=== PATIENT | male | born 1980 | race African-American/Black ===

== ENCOUNTER → 2018-03-21 | Outpatient (CLI) | payer OTHER ==
--- NOTE | 2018-03-21 12:00 | MRI ---
HISTORY: Weakness and lower legs. Clinical concern for multiple sclerosis. Study: MR brain with and without IV contrast. Comparison: None. Technique: Multiplanar multi-sequence MRI of the brain was obtained both prior to and after the uneve ntful administration of 16 cc of Omniscan intravenous contrast. Findings: There are a few scattered areas of increased T2/FLAIR signal within the periventricular whi te matter regions bilaterally. The largest areas of abnormal signal measure approximately 10 mm in di ameter and are located along the superior aspect of the right lateral ventricle and along the superio r aspect of the posterior horn of the left lateral ventricle. There is a focus of increased T2/FLAIR signal in the subcortical white matter regions of the left frontal lobe mid to high convexity (image 19 series 801). No abnormal signal characteristics of the included portions of the brainstem are evid ent. There is no restricted diffusion on diffusion-weighted imaging or abnormal enhancement on postco ntrast imaging to suggest active demyelination. There is no leptomeningeal enhancement. No intraparen chymal mass or hemorrhage is identified. No extra-axial fluid collections are observed. The ventricu lar system is symmetric and nondilated. The extracranial structures are unremarkable. IMPRESSION: Focal areas of increased T2/FLAIR signal within the bilateral periventricular regions and subcortical white matter of the left frontal lobe as above. Findings are nonspecific, but could reflect a demyel inating process in the appropriate clinical setting. There are no MR findings to suggest an active de myelinating plaque. Reported By:
== END ==
LOC: RAD 09:10
DX: G35 Multiple sclerosis (principal)
CPT/HCPCS: 70553